=== PATIENT | female | born 1990 | race African-American/Black ===

== ENCOUNTER 2025-05-27 10:09 | Emergency (ER) | payer OTHER, SELFPAY ==
[2025-05-27] VITALS (9 sets, daily range): BP systolic 111–152; BP diastolic 54–90; BMI 33.8
--- NOTE | 2025-05-27 10:11 | ED.GENMED ---
History of Present Illness
General
Chief Complaint: Chest Pain
Time Seen by Provider: 05/27/25 10:10
History of Present Illness
History of Present Illness:
TIME OF INITIAL EVALUATION
- 10:15 AM
REVIEW OF OLD RECORDS
- No old records available for review in [facility]. She comes in from [facility] by ambulance.
Note:
CHIEF COMPLAINT(S)
Chest pain with numbness and tingling extending down the left arm and left toes.
HISTORY OF PRESENT ILLNESS
The patient is a 34-year-old female presenting with chest pain and numbness, characterized by a tingling sensation extending down the left arm to the toes on the left foot. She notes similar symptoms on the right side, but predominantly on the left.
The chest pain began yesterday and has been constant since onset, severely affecting her sleep, as it intensifies with position changes, such as turning to the left or right side.
The patients blood pressure has been persistently elevated for the past four days, with a noted measurement of 170 mmHg yesterday. She was recently started on antihypertensive medications, including Tenormin (Atenolol) 10 mg and Hydrochlorothiazide
25 mg, which were commenced approximately one week ago. Although these medications were introduced to manage her hypertension, they have not yet resulted in a significant reduction in blood pressure.
She reports a sensation of her heart racing but denies any previous episodes of chest pain similar to this one. The patient experienced tenderness upon palpation of the chest, which exacerbates the discomfort. She denies any recreational drug use.
CHRONIC MEDICAL CONDITIONS SIGNIFICANTLY AFFECTING CARE
Hypertension.
MEDICATIONS
- Atenolol 10 mg
- Hydrochlorothiazide 25 mg
REVIEW OF SYSTEMS
- Cardiovascular: Elevated blood pressure, chest pain, heart racing.
- Musculoskeletal: Chest tenderness on palpation.
- Neurological: Numbness and tingling on the left side, extending from the arm to the toes.
- Integumentary: Swelling in both legs, greater on the left side.
- Sleep: Impaired sleep due to the discomfort.
PHYSICAL EXAM
General: Alert, no acute distress.
Skin: Warm, dry, some scattered skin lesions consistent with picking wounds noted.
Head: Normocephalic, atraumatic.
Neck: Supple, trachea midline.
Eye Ears, nose, mouth, and throat: Oral mucosa moist.
Cardiovascular: Normal peripheral perfusion, No edema, tachycardia noted.
Respiratory: Respirations are non-labored.
Gastrointestinal: Abdomen nondistended.
Back: Normal range of motion, Normal alignment.
Musculoskeletal: Marked tenderness with palpation to the anterior chest wall
Neurological: Sensory deficits noted on the left side, good strength in all extremities.
Psychiatric: Cooperative, appropriate mood & affect.
PROBLEM LIST
Acute Problems:
- Chest pain with associated numbness and tingling
- Hypertension
PLAN
- Administer anti-inflammatory medication (Toradol) to address chest pain.
- Conduct blood work, including cardiac biomarkers.
- Obtain a chest X-ray.
- Order a computed tomography scan to evaluate for any structural abnormalities or neurovascular compromise.
DIFFERENTIAL DIAGNOSIS
The Differential Diagnosis includes, in no particular order and is not limited to:
- Myocardial infarction unlikely given the reproducibility
- Musculoskeletal pain (costochondritis)
- Hypertensive crisis
- Peripheral neuropathy
- Cervical radiculopathy
- Aortic dissection
- Anxiety or panic disorder
- Pleuritic pain
- Gastroesophageal reflux disease
RADIOLOGY
- Chest x-ray shows no acute abnormality; CAT scan of the brain shows no acute abnormality
EKG
- Sinus 126, ST abnormality which may be rate related, QTc is noted to be elevated at 593 ms
LABS
- CBC shows a mild anemia, potassium only 2.9, troponin less than 0.012, TSH normal
UPDATE
- I discussed case with Dr. Ceballos. He recommends IV potassium here and outpatient management and they can repeat EKG as an outpatient at the present.
- I discussed case with Dr. Ghotra given the left-sided sensory changes�he recommends some additional labs which I have ordered on and recommends outpatient MRI
SUMMARY OF ENCOUNTER
The patient, a 34-year-old female, presented to the emergency department with chest pain accompanied by numbness and tingling that extended from the left arm to the toes. She experienced elevated blood pressure readings over the past four days and
was started on Atenolol and Hydrochlorothiazide approximately one week ago. In the emergency department, her potassium level was found to be critically low at 2.9 mmol/L, and magnesium was low at 1.4 mg/dL. Thyroid studies were normal. Given her
electrolyte imbalances, oral and IV potassium were administered, and oral magnesium replacement was initiated. Further management included administering Toradol for pain, as per prior plan.
MANAGEMENT OF THE PATIENTS CARE WAS DISCUSSED WITH
I discussed the case with Dr. Ceballos and Dr. Clark.
PLAN
- Continue monitoring vital signs and symptomatology closely in the emergency department.
- Conduct blood work, including cardiac biomarkers to evaluate for cardiac etiology.
- Obtain a chest X-ray and CT scan to rule out structural abnormalities.
- Monitor electrolyte levels in response to supplementation.
- Re-evaluate the effectiveness of current antihypertensive regimen, potentially altering medications based on blood pressure readings and possible side effects.
INDEPENDENT REVIEW OF LABS AND INTERPRETATION OF TESTS
My independent review of the patients labs indicates critically low potassium at 2.9 mmol/L and low magnesium at 1.4 mg/dL. Thyroid function tests returned within normal limits.
MEDICATION RECONCILIATION
- Potassium supplement: Oral and IV potassium administered in the emergency department.
- Magnesium supplement: Oral magnesium was administered based on low magnesium level.
- Toradol: Administered for pain management in the emergency department.
MEDICAL DECISION MAKING
- Chronic conditions affecting care: Hypertension.
- Differential Diagnosis: Myocardial infarction, Musculoskeletal pain (costochondritis), Pulmonary embolism, Hypertensive crisis, Peripheral neuropathy, Cervical radiculopathy, Aortic dissection, Anxiety or panic disorder, Pleuritic pain,
Gastroesophageal reflux disease.
- Data:
Category 1
Testing considered: Cardiac biomarkers, chest X-ray, CT scan for structural evaluation.
Category 2
My independent review of labs indicates critically low potassium and magnesium. Thyroid function is normal.
Category 3
Discussion of management with Dr. Ceballos and Dr. Ghotra.
-Risk:
Prescription drug management with Atenolol and Hydrochlorothiazide requires monitoring for effectiveness and potential side effects. Electrolyte replacement therapy indicated due to risk of complications from low levels. Decision to continue
outpatient management pending re-evaluation of symptoms and vital stability.
DIAGNOSIS
- Hypokalemia (ICD-10: E87.6)
- Hypomagnesemia (ICD-10: E61.2)
- Hypertension (ICD-10: I10)
Repeat QTc down to 547 ms. Of note the patient is on several psychiatric medications including Abilify, Seroquel, and fluoxetine. I recommended that this be reviewed by her ordering provider.
Phy Exam
Physical Exam
Physical Exam:
See HPI
Scores
Heart Score for Chest Pain Patients
STEMI patient?: Not applicable
Course
Orders/Labs/Results
Orders:
Orders
05/27/25 10:10
Electrocardiogram (*1) Urgent
Reason for Study: Chest Pain
EKG- Treatment ONCE
05/27/25 10:18
CT Head W/o Iv Contrast Urgent
Comment:
Reason For Exam: L sens deficits
Ketorolac [Toradol] 15 mg IV NOW STA
Metoprolol [Lopressor] 5 mg IV NOW STA
05/27/25 10:19
CR Chest - 2 Views Urgent
Comment:
Reason For Exam: cp
05/27/25 10:28
Complete Blood Count/With Diff Urgent
Comprehensive Metabolic Panel Urgent
Erythrocyte Sed Rate Urgent
Comment: ADD
Ferritin Urgent
Comment: ADD
Folate Urgent
Comment: ADD
Magnesium Urgent
TSH Reflex To Free T4 Urgent
Troponin I Urgent
Vitamin B12 Urgent
Comment: ADD
05/27/25 11:58
Electrocardiogram (*1) Urgent
Reason for Study: Tachycardia
EKG- Treatment ONCE
Potassium Chloride Powder [Klor-Con] 60 meq PO NOW STA
05/27/25 12:07
Add On- LAB Urgent
Tests Added?: magnesium
05/27/25 12:23
Potassium Chloride [KCl] 40 meq 0.9% Sodium Chloride 250 ml [Nss] 250 ml IV NOW
05/27/25 12:36
Add On- LAB Urgent
Tests Added?: B12, folate, ferritin, esr
05/27/25 13:32
Magnesium Oxide 1,000 mg PO NOW STA
Abnormal Lab Results
05/27/25
10:28
Hgb 11.3 L g/dL
(12.0-16.0)
Hct 34.3 L %
(37.0-47.0)
MCV 80.7 L fL
(81.0-99.0)
MCH 26.6 L pg
(27.0-31.0)
MCHC 32.9 L g/dL
(33.0-37.0)
MPV 11.5 H fL
(7.4-10.4)
Monocytes % 11.2 H %
(1.7-9.3)
Potassium 2.9 L mmol/L
(3.5-5.1)
Chloride 97 L mmol/L
(98-107)
Carbon Dioxide 31 H mmol/L
(22-30)
BUN 6 L mg/dl
(7-17)
Glucose 137 H mg/dl
(70-99)
Magnesium 1.4 L mg/dl
(1.6-2.3)
05/27/25 10:28
05/27/25 10:28
Vital Signs
Initial and Last Documented VS:
Initial Vital Signs
BP
152/81
05/27/25 10:12
Last Documented Vital Signs
Temp Pulse Resp BP Pulse Ox
37.2 C 107 15 140/82 99
05/27/25 12:02 05/27/25 12:15 05/27/25 12:15 05/27/25 12:00 05/27/25 12:15
*Pulse Oximetry
Patient hypoxic: no
*Critical Care Note
Total Time (30-74mins, 75-104mins- exclusive of procedures): Not Applicable
ED Attending Note
-
Portions of this chart may have been created with voice recognition software.� Occasional wrong word or��sound alike� substitutions may have occurred due to the inherent limitations of voice recognition software.
Discharge Plan
Departure
Patient Disposition: Home (Routine Discharge)
Date of Disposition: 05/27/25
Time of Disposition: 13:37
Patient with high blood pressure during this ER visit?: Yes
Discharge Problem:
Hypokalemia
Instructions: Hypokalemia, Chest Pain PCP Follow Up
Referrals:
[facility] [Family Provider, General]
Activity Restrictions/Additional Instructions:
White blood cell count is normal. Potassium level is 2.9 and the magnesium level is 1.4. Both were replaced. I gave you both IV and oral potassium and oral magnesium. On the EKG, we do see a prolonged QT and I therefore spoke to cardiology,
Tucker. You are on some medications that could potentially raise the QT. I recommend that you review the use of Seroquel, Abilify, fluoxetine, and Wellbutrin and with your ordering physician. QTc is 593 ms and then repeated was down to [address] Ceballos recommends that the care home repeat an EKG over the next few days. I also spoke to Dr. Ghotra who recommends an outpatient MRI of the brain for further evaluation. Thyroid testing is normal. Cardiac blood work shows no sign of heart attack.
Interventions
Interventions:
*Risk Screen - Suicide Last Done: 05/27/25 10:16
*General Assessment Last Done: 05/27/25 11:17
*Neglect/Abuse Screening Last Done: 05/27/25 10:16
*ED- Fall Risk Assessment Last Done: 05/27/25 11:17
*ED COVID-19 Vaccine History Last Done: 05/27/25 11:17
ED- Cardiac Assessment Last Done: 05/27/25 11:17
Discharge Date and Time
Print Language: [facility] [place]
[2025-05-27 10:35] LABS: Hematocrit 34.3 % (37.0-47.0); Hemoglobin 11.3 g/dL (12.0-16.0); Mean Corp Hgb Conc. 32.9 g/dL (33.0-37.0); Mean Corpuscular Volume 80.7 fL (81.0-99.0); Nucleated Red Blood Cells % 0 %; Platelet Count 269 10^3/uL (130-400); Red Cell Dist. Width 13.0 % (11.5-14.5)
[2025-05-27 10:53] LABS: ALT (SGPT) 31 U/L (0-35); AST (SGOT) 28 U/L (14-36); Albumin 4.4 g/dl (3.5-5.0); Alkaline Phosphatase 97 U/L (38-126); Blood Urea Nitrogen 6 mg/dl (7-17); Calcium 9.8 mg/dl (8.4-10.2); Carbon Dioxide 31 mmol/L (22-30); Chloride 97 mmol/L (98-107); Estimated Creatinine Clearance > 125 ml/min; Glucose 137 mg/dl (70-99); Potassium 2.9 mmol/L (3.5-5.1); Sodium 136 mmol/L (135-145); Total Protein 7.4 g/dl (6.3-8.2); eGFR > 60.00
[2025-05-27] MEDS: TORADOL 15 MG IV (10:54)
[2025-05-27] MEDS: LOPRESSOR 5 MG IV (10:55)
[2025-05-27 11:06] LABS: Troponin I < 0.012 ng/ml
[2025-05-27] MEDS: KLOR-CON 60 MEQ PO (12:12)
[2025-05-27] MEDS: KCL 270 MEQ IV (12:32)
--- NOTE | 2025-05-27 12:33 | EDRN ---
IV RATE for KcL started at 40 ml/hr d/t vein irritation
[2025-05-27 13:25] LABS: Magnesium 1.4 mg/dl (1.6-2.3)
[2025-05-27] MEDS: MAGNESIUM OXIDE 1000 MG PO (13:48)
[2025-05-27 14:13] LABS: Ferritin 80.7 ng/ml (6.24-137)
[2025-05-27 14:44] LABS: Folate 6.3 ng/ml (2.76-20); Vitamin B12 636 pg/ml (239-931)
[2025-05-27 18:58] LABS: D-Dimer 0.29 ug/mlFEU (0.00-0.50)
== END 2025-05-27 20:26 | disposition home or self-care (01) ==
LOC: EMR 10:09
PROVIDERS: Emergency Medicine; EMERGENCY PHYSICIAN Emergency Medicine
DX: E87.6 Hypokalemia (principal); E83.42 Hypomagnesemia; I10 Essential (primary) hypertension; R20.2 Paresthesia of skin; R07.9 Chest pain, unspecified
CPT/HCPCS: 96365; 96366; 96375; 99285; 70450; 71046; 80053; 82607; 82728; 82746; 83735; 84443; 84484; 85025; 85379; 85652; 93005